=== PATIENT | female | born 1975 | race Caucasian/White ===

== ENCOUNTER 2020-04-26 14:07 | Emergency (ER) | payer BC ==
--- NOTE | 2020-04-26 14:28 | TELE ---
HPI Do you have fever,cough or shortness of breath?: No - General Reason For Visit: COVID19 TESTING History Source: Patient Exam Limitations: No Limitations - History of Present Illness 04/26/20 14:21 Patient is a 45-year-old female with no past medical history who presents for a virtual urgent care visit for complaint of sore throat, congestion and chills that started yesterday. 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 She denies any recent travel outside of the within the last 30 days and denies travel outside of [place] within the last 14 days. She has not taken anything for her symptoms. She denies any known COVID contacts. She denies any allergies to medications. Past History - Medical History Allergies/Adverse Reactions: Allergies Allergy/AdvReac Type Severity Reaction Status Date / Time nickel [Nickel] Allergy Unverified 12/01/12 10:05 bandaids Allergy Uncoded 01/19/13 11:36 Home Medications: Ambulatory Orders Levonorgestrel-Ethin Estradiol [Jolessa 0.15 Mg-0.03 Mg Tablet] 1 each PO ASDIR 08/09/14 Review of Systems - Review of Systems Comments:: 04/26/20 14:29 - Review of Systems Able to Perform ROS?: Yes Constitutional: No: Fever, Loss of Appetite, Night Sweats, Weakness; positive: Chills, COVID swab HEENTM: No: Eye Pain, Vision changes, Ear Pain, Throat Swelling, Mouth Pain, Difficulty Swallowing; positive: Throat pain and nasal congestion Respiratory: No: Cough, Shortness of Breath, Wheezing, Sputum Production Cardiac (ROS): No: Chest Pain, Chest Tightness, Palpitations, Irregular Heart Beat, Edema ABD/GI: No: Nausea, Vomiting, Abdominal Pain, Diarrhea : No Dysuria, No Hematuria, No Frequency, No Urgency Musculoskeletal: No: Muscle Pain, Back Pain, Joint Pain, Muscle Weakness, Neck Pain Integumentary: No: Lesions, Rash Neurological: No: Headache, Numbness, Tingling, Weakness, Speech Difficulties *Physical Exam - Physical Exam 04/26/20 14:29 - Physical Exam General Appearance: Nourished, Appropriately Dressed, No Distress HEENT: EOMI, Normal Voice, Hearing Grossly Normal Neck: No Decreased range of motion Respiratory/Chest: Normal chest excursion appreciated, No Accessory Muscle Use Gastrointestinal/Abdominal: No distention Musculoskeletal: Normal Inspection Integumentary: Normal Color, Dry. 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 Plan: -COVID swab ordered -COVID counseling given, isolation precautions reviewed -Patient to proceed to the [facility] for COVID swab -She understands and agrees with this treatment plan. Discharge Diagnosis at time of Disposition: Counseled about COVID-19 virus infection, Sore throat - Referrals Follow-up Referral(s): Akash Cummins MD [Primary Care Provider] - - Patient Instructions Discharge Instructions: [facility]-Coronavirus Instructions, [facility] COVID-19 Isolation Protocol Additional Discharge Instructions: You were seen via a telehealth visit and tested for COVID today. You should follow isolation precautions as per [facility] guidelines. Thank you for participating in our telehealth medicine program. If you have any worsening symptoms such as high fever, shaking chills, profuse vomiting or any other wor sening symptoms you should go to your local emergency department immediately or follow up with your primary care doctor immediately. If you are symptomatic: Take Tylenol 650 mg every 6 hours as needed for fever or pain. You may take Robitussin or other yyxv-rqa-[id number] cough syrup. Follow the dosing instructions on the bottle. Warm tea, honey, and salt water gargles may help your symptoms. Please take precautions and self quarantine for 2 weeks and follow-up with your primary care doctor and the Department of Health. Return to the nearest emergency department for shortness of breath, difficulty breathing, chest pain, or if you have any changes in your symptoms. - Discharge Disposition: HOME Condition at time of Disposition: Stable
== END 2020-04-26 14:32 | disposition home or self-care (01) ==
LOC: JVIRT 14:07
DX: Z11.59 Encounter for screening for other viral diseases (principal)
CPT/HCPCS: Q3014-GT; U0003

== ENCOUNTER 2020-07-16 10:20 | Emergency (ER) | payer BC | END 2020-07-16 11:54 | disposition home or self-care (01) | LOC: JVIRT 10:20 | DX: Z03.818 Encounter for observation for suspected exposure to other biological agents ruled out (principal) | CPT/HCPCS: C9803; G2012-GT; U0003 ==